=== PATIENT | female | born 1960 | race Caucasian/White ===

== ENCOUNTER 2017-07-05 16:08 | Emergency (ER) | payer BC ==
[2017-07-05] MEDS ORDERED: MAG HYDROX/AL HYDROX/SIMETH SUSP 30 ML UDCUP PO ONE (16:37)
[2017-07-05] MEDS ORDERED: LIDOCAINE 2% VISCOUS SOLN 20 ML UDCUP PO ONE (16:37)
--- NOTE | 2017-07-05 16:41 | ER Document Report ---
ED Medical Screen (RME) - General Chief Complaint: Abdominal Pain Stated Complaint: SIDE/BACK PAIN Time Seen by Provider: 07/05/17 16:34 Notes: This 56-year-old female patient complains of one-week history of epigastric and right upper quadrant abdominal pain goes into the back. She reports her gallbladder removed about 15 years ago. She had similar pain 5 years ago and at that time had a sphincterotomy of the sphincter of Oddi. She does suffer from considerable amount of reflux by history. Brief exam shows the epigastrium to be somewhat tender to palpate. It is less tender in the right upper quadrant. I have greeted and performed a rapid initial assessment of this patient. A comprehensive ED assessment and evaluation of the patient, analysis of test results and completion of the medical decision making process will be conducted by additional ED providers. TRAVEL OUTSIDE OF THE [place] IN LAST 30 DAYS: No - Related Data Allergies/Adverse Reactions: bupropion [From Wellbutrin] Allergy (Verified 07/05/17 16:20) cyclobenzaprine [From Flexeril] Allergy (Verified 07/05/17 16:20) metaxalone [From Skelaxin] Allergy (Verified 07/05/17 16:20) tramadol [From Ultram] Allergy (Verified 07/05/17 16:20) Past Medical History Renal/ Medical History: Denies: Hx Peritoneal Dialysis Physical Exam - Vital signs Vitals: Temp Pulse Resp BP Pulse Ox 98.7 F 106 H 18 146/77 H 96 07/05/17 16:20 07/05/17 16:20 07/05/17 16:20 07/05/17 16:20 07/05/17 16:20 Course - Vital Signs Vital signs: Temp Pulse Resp BP Pulse Ox 98.7 F 106 H 18 146/77 H 96 07/05/17 16:20 07/05/17 16:20 07/05/17 16:20 07/05/17 16:20 07/05/17 16:20
[2017-07-05 17:21] LABS: ABSOLUTE BASOPHILS # (AUTO) 0.1 10^3/uL (0.0-0.2); ABSOLUTE EOSINOPHILS # (AUTO) 0.1 10^3/uL (0.0-0.6); ABSOLUTE MONOCYTES (AUTO) 0.5 10^3/uL (0.1-1.4); ABSOLUTE NEUT (AUTO) 7.6 10^3/uL (1.7-8.2); BASOPHILS % (AUTO) 0.6 % (0-2); EOSINOPHILS % (AUTO) 1.1 % (0-6); HEMATOCRIT 47.8 % (36.0-47.0); HEMOGLOBIN 16.6 g/dL (12.0-15.5); LYMPHOCYTES % (AUTO) 26.8 % (13-45); MEAN CORPUSCULAR HEMOGLOBIN 32.5 pg (27.0-33.4); MEAN CORPUSCULAR HGB CONC 34.6 g/dL (32.0-36.0); MEAN CORPUSCULAR VOLUME 94 fl (80-97); MONOCYTES % (AUTO) 4.8 % (3-13); RED CELL DISTRIBUTION WIDTH 14.7 % (11.5-14.0); SEGMENTED NEUTROPHILS % (AUTO) 66.7 % (42-78); WHITE BLOOD COUNT 11.3 10^3/uL (4.0-10.5)
[2017-07-05 17:38] LABS: ALANINE AMINOTRANSFERASE 24 U/L (9-52); ALBUMIN 4.7 g/dL (3.5-5.0); ALKALINE PHOSPHATASE 83 U/L (38-126); ANION GAP 16 (5-19); ASPARTATE AMINO TRANSFERASE 20 U/L (14-36); BILIRUBIN,DIRECT 0.3 mg/dL (0.0-0.4); BILIRUBIN,TOTAL 0.4 mg/dL (0.2-1.3); BLOOD UREA NITROGEN 15 mg/dL (7-20); CALCIUM 9.9 mg/dL (8.4-10.2); CARBON DIOXIDE 24 mmol/L (22-30); CHLORIDE 106 mmol/L (98-107); CREATININE RESULT 0.68 mg/dL (0.52-1.25); GLUCOSE 105 mg/dL (75-110); LIPASE 43.5 U/L (23-300); POTASSIUM 4.1 mmol/L (3.6-5.0); SODIUM 145.7 mmol/L (137-145); TOTAL PROTEIN 7.6 g/dL (6.3-8.2)
[2017-07-05] MEDS ORDERED: HYDROCODONE/ACETAMINOPHEN 5-325 MG TABLET PO ONE (17:55)
--- NOTE | 2017-07-05 17:56 | ER Document Report ---
ED GI/ - General Chief Complaint: Abdominal Pain Stated Complaint: SIDE/BACK PAIN Time Seen by Provider: 07/05/17 16:34 Notes: The patient is a 56-year-old female, past medical history cholecystectomy, presents with 2 days of worsening right upper quadrant abdominal pain and nausea that is worse after eating. She had this a few years ago when she required a sphincter of Oddi sphincterectomy at [facility]. Patient denies fevers, vomiting, diarrhea, constipation, urinary symptoms, rash or headache. TRAVEL OUTSIDE OF THE [place] IN LAST 30 DAYS: No - Related Data Allergies/Adverse Reactions: bupropion [From Wellbutrin] Allergy (Verified 07/05/17 17:21) cyclobenzaprine [From Flexeril] Allergy (Verified 07/05/17 17:21) metaxalone [From Skelaxin] Allergy (Verified 07/05/17 17:21) tramadol [From Ultram] Allergy (Verified 07/05/17 17:21) Past Medical History - General Information source: Patient - Social History Smoking Status: Current Every Day Smoker Chew tobacco use (# tins/day): No Frequency of alcohol use: None Drug Abuse: None Family History: Reviewed & Not Pertinent Patient has suicidal ideation: No Patient has homicidal ideation: No Renal/ Medical History: Denies: Hx Peritoneal Dialysis Psychiatric Medical History: Reports: Hx Depression Past Surgical History: Reports: Hx Appendectomy, Hx Hysterectomy, Hx Orthopedic Surgery - both [facility] Review of Systems - Review of Systems Notes: REVIEW OF SYSTEMS: CONSTITUTIONAL: -fevers, -chills EENT: -eye pain, -difficulty swallowing, -nasal congestion CARDIOVASCULAR:-chest pain, -syncope. RESPIRATORY: -cough, -SOB GASTROINTESTINAL: +RUQ abdominal pain, +nausea, -vomiting, -diarrhea GENITOURINARY: -dysuria, -hematuria MUSCULOSKELETAL: -back pain, -neck pain SKIN: -rash or skin lesions. HEMATOLOGIC: -easy bruising or bleeding. LYMPHATIC: -swollen, enlarged glands. NEUROLOGICAL: -altered mental status or loss of consciousness, -headache, - neurologic symptoms PSYCHIATRIC: -anxiety, -depression. ALL OTHER SYSTEMS REVIEWED AND NEGATIVE. Physical Exam - Vital signs Vitals: Temp Pulse Resp BP Pulse Ox 98.7 F 106 H 18 146/77 H 96 07/05/17 16:20 07/05/17 16:20 07/05/17 16:20 07/05/17 16:20 07/05/17 16:20 - Notes Notes: PHYSICAL EXAMINATION: GENERAL: Well-appearing, well-nourished and in mild acute distress. HEAD: Atraumatic, normocephalic. EYES: Pupils equal round and reactive to light, extraocular movements intact, sclera anicteric, conjunctiva are normal. ENT: nares patent, oropharynx clear without exudates. Moist mucous membranes. NECK: Normal range of motion, supple without lymphadenopathy LUNGS: Breath sounds clear to auscultation bilaterally and equal. No wheezes rales or rhonchi. HEART: Regular rate and rhythm without murmurs ABDOMEN: Soft, moderate RUQ tenderness, normoactive bowel sounds. No guarding, no rebound. No masses appreciated. EXTREMITIES: Normal range of motion, no pitting or edema. No cyanosis. NEUROLOGICAL: Cranial nerves grossly intact. Normal speech, normal gait. Normal sensory and motor exams. PSYCH: Normal mood, normal affect. SKIN: Warm, Dry, normal turgor, no rashes or lesions noted. Course - Re-evaluation Re-evalutation: Patient with right upper quadrant tenderness and nausea that is worse after eating. Her ultrasound shows cholelithiasis with mild CBD dilation which may be related to postsurgical changes. However, she is tender in her right upper quadrant. 07/05/17 21:[address] Syed about positive Zhao sign and ultrasound results and he will be down to see patient. 07/05/17 21:[address] Syed and with a ultrasound that does not show evidence of cholecystitis and a normal LFTs, do not suspect a choledocholithiasis. Patient is on chronic pain management and on 30 mg of morphine several times a day. Instructed her to follow-up with her GI doctor in [place] when she returns this week. Given strict return precautions and she understands. - Vital Signs Vital signs: Temp Pulse Resp BP Pulse Ox 98.8 F 72 16 110/58 L 95 07/05/17 20:05 07/05/17 20:05 07/05/17 20:05 07/05/17 20:05 07/05/17 20:05 - Laboratory Result Diagrams: 07/05/17 16:50 07/05/17 16:50 Laboratory results interpreted by me: 07/05/17 07/05/17 07/05/17 16:50 16:50 17:44 WBC 11.3 H Hgb 16.6 H Hct 47.8 H RDW 14.7 H Sodium 145.7 H Urine Protein 30 H Ur Leukocyte Esterase TRACE H - Diagnostic Test Radiology reviewed: Image reviewed, Reports reviewed Radiology results interpreted by me: RUTravon US: Cholelithiasis with mild CBD dilation, no ductal stones. Discharge - Discharge Clinical Impression: Right upper quadrant abdominal pain Condition: Stable Disposition: HOME, SELF-CARE Additional Instructions: ABDOMINAL PAIN: There are many causes of abdominal pain. Pain can mean a serious problem requiring surgery (such as appendicitis). It can also be an innocent problem that goes away on its own (such as a viral infection). Often, time must pass to determine the cause of pain. The physician does not feel that hospitalization is necessary, at present. Things may change within the next 24 hours. Call the doctor or come back for re- examination if any problems occur, such as: (1) Pain that becomes more severe, steady, or becomes concentrated in one specific area. Also, pain that is more severe with movement or coughing. (2) Vomiting that persists or becomes more frequent. (3) Blood in the vomitus, urine, or bowel movements. Blood in the stool may have a tarry or black appearance. (4) Shaking chills or fever greater than 100 degrees F. (5) The abdomen becomes more distended or swollen. (6) Bowel movements cease. (7) Failure to improve as expected. NORMAL EXAM AND WORKUP: At this time, your examination and workup show no significant abnormality. No significant abnormal physical findings are noted. All laboratory, EKG, and imaging (x-ray, CT scans, ultrasound) studies that were ordered show no significant abnormality. Although your examination and all studies that were ordered showed no significant abnormal finding, there are no examinations and no studies that are 100% accurate. There is always the possibility that some abnormality could exist and not be detected with physical examination or within the limits and capabilities of laboratory and other studies. You should return or follow up as you were instructed on your visit today for further evaluation if your symptoms do not resolve. FOLLOW-UP CARE: If you have been referred to a physician for follow-up care, call the physician s office for an appointment as you were instructed or within the next two days. If you experience worsening or a significant change in your symptoms, notify the physician immediately or return to the Emergency Department at any time for re-evaluation. Referrals: MIKE ISLAS MD [ACTIVE STAFF] - Follow up as needed
[2017-07-05 18:03] LABS: APPEARANCE,URINE SLIGHTLY-CLOUDY; BILIRUBIN,URINE NEGATIVE (NEGATIVE); GLUCOSE, URINE NEGATIVE (NEGATIVE); KETONES,URINE NEGATIVE (NEGATIVE); LEUKOCYTE ESTERASE,URINE TRACE (NEGATIVE); NITRITE,URINE NEGATIVE (NEGATIVE); PROTEIN,URINE 30 mg/dL (NEGATIVE); URINE SPECIFIC GRAVITY 1.029; UROBILINOGEN,URINE NEGATIVE mg/dL (<2.0)
--- NOTE | 2017-07-05 19:16 | RADIOLOGY REPORT (SQ) ---
EXAM DESCRIPTION: U/S ABDOMEN LIMITED W/O DOP COMPLETED DATE/TIME: 07/05/2017 7:01 pm REASON FOR STUDY: RUQ pain and tenderness, s/p cholecystectomy COMPARISON: None. TECHNIQUE: Dynamic and static grayscale images acquired of the abdomen and recorded on PACS. Cindyo sonia selected color Doppler and spectral images recorded. LIMITATIONS: None. FINDINGS: PANCREAS: No masses. Visualized pancreatic duct normal caliber. LIVER: No masses. Echotexture normal. LIVER VASCULATURE: Normal directional flow of the main portal vein and hepatic veins. GALLBLADDER: Surgically absent. ULTRASOUND-DETECTED MOORE'S SIGN: Not applicable. INTRAHEPATIC DUCTS AND COMMON DUCT: No intrahepatic duct dilatation. Common duct measures up to 12 m m, slightly conspicuous. No duct stones visualized. INFERIOR VENA CAVA: Normal flow. AORTA: No aneurysm. RIGHT KIDNEY: Normal size. Normal echogenicity. No solid or suspicious masses. No hydronephrosis. No calcifications. PERITONEAL AND RIGHT PLEURAL SPACE: No ascites or effusions. OTHER: No other significant findings. IMPRESSION: 1. Cholelithiasis with mild common duct dilatation. This may be related to postoperativ e state. No duct stones identified. Otherwise right upper quadrant ultrasound. TECHNICAL DOCUMENTATION: JOB ID: [id number] [employer]- All Rights Reserved
[2017-07-05] MEDS ORDERED: OXYCODONE-ACETAMINOPHEN 5-325 MG TABLET PO ONE (20:07)
[2017-07-05 22:23] VITALS: BP 114/73
--- NOTE | 2017-07-05 22:38 | PDOC CONSULTATION ---
Consultation Consult Date: 07/05/17 Consult reason:: Post cholecystectomy and post ERCP with sphincterotomy and now with right upper quadrant pains History of Present Illness History of Present Illness: ELEAZAR NANCE is a 56 year old female Has been complaining of right upper quadrant pains for the past 2 days associated with nausea. She had a lap laparoscopic cholecystectomy about 15-20 years ago in [place] for biliary dyskinesia. About 5 years ago complained of another episode of right upper quadrant pains and subsequently had an ERCP with sphincterotomy. She improved after that. For the past 2 days has been having severe pains getting worse today primarily along the right upper quadrant. She had an ultrasound of the gallbladder gallbladder area today which showed postcholecystectomy with slightly dilated common bile duct but no obvious common bile duct stones. There is an associated nausea. Patient is under pain management and takes morphine 30 mg p.o. daily and she said the last time she took it was about 3 days ago. She has appointment with [facility] pain management on July 21, 2017 . Past Medical History Past Medical History: Denies any hypertension or diabetes Medical History: None Psychiatric Medical History: Reports: Depression Past Surgical History Past Surgical History: Reports: Appendectomy, Hysterectomy, Orthopedic Surgery - both [facility] Social History Smoking Status: Current Every Day Smoker Cigarettes Packs Per Day: 1 - Advance Directive Resuscitation Status: Full Code Family History Family History: Reviewed & Not Pertinent Parental Family History Reviewed: Yes - Mother of breast CA with brain metastases. Father of an [place] Children Family History Reviewed: No Sibling(s) Family History Reviewed.: No Medication/Allergy Allergies/Adverse Reactions: bupropion [From Wellbutrin] Allergy (Verified 07/05/17 17:21) cyclobenzaprine [From Flexeril] Allergy (Verified 07/05/17 17:21) metaxalone [From Skelaxin] Allergy (Verified 07/05/17 17:21) tramadol [From Ultram] Allergy (Verified 07/05/17 17:21) Review of Systems Constitutional: PRESENT: other - Denies any fever nor chills Eyes: PRESENT: other - No visual or hearing problems Nose, Mouth, and Throat: PRESENT: other - No sore throat Cardiovascular: PRESENT: other - No chest pains Respiratory: PRESENT: other - No shortness of breath nor cough Gastrointestinal: PRESENT: as per HPI Musculoskeletal: PRESENT: other - No joint swelling Integumentary: PRESENT: other - No rash Neurological: PRESENT: other - No seizure disorder Endocrine: PRESENT: other - No polydipsia no polyuria Hematologic/Lymphatic: PRESENT: other - Easy bruisability or lymphadenopathy Physical Exam Vital Signs: Temp Pulse Resp BP Pulse Ox 98.8 F 83 16 114/73 95 07/05/17 20:05 07/05/17 22:22 07/05/17 22:22 07/05/17 22:22 07/05/17 22:22 Intake & Output 07/04/17 07/05/17 07/06/17 06:59 06:59 06:59 Weight 67.4 kg General appearance: PRESENT: no acute distress Head exam: PRESENT: atraumatic, normocephalic Eye exam: PRESENT: conjunctiva pink Mouth exam: PRESENT: moist, tongue midline Neck exam: PRESENT: full ROM Respiratory exam: PRESENT: clear to auscultation brie Cardiovascular exam: PRESENT: RRR Pulses: PRESENT: normal radial pulses Vascular exam: PRESENT: normal capillary refill GI/Abdominal exam: PRESENT: soft, tenderness - Tenderness just below the rib cage and right upper quadrant Rectal exam: PRESENT: deferred Extremities exam: PRESENT: full ROM Musculoskeletal exam: PRESENT: full ROM Neurological exam: PRESENT: alert, oriented to person, oriented to place, oriented to time, oriented to situation Psychiatric exam: PRESENT: appropriate affect Skin exam: PRESENT: dry, normal color, warm Results Laboratory Results: 07/05/17 16:50 07/05/17 16:50 07/05/17 07/05/17 07/05/17 16:50 16:50 17:44 WBC 11.3 H RBC 5.10 Hgb 16.6 H Hct 47.8 H MCV 94 MCH 32.5 MCHC 34.6 RDW 14.7 H Plt Count 163 Seg Neutrophils % 66.7 Lymphocytes % 26.8 Monocytes % 4.8 Eosinophils % 1.1 Basophils % 0.6 Absolute Neutrophils 7.6 Absolute Lymphocytes 3.0 Absolute Monocytes 0.5 Absolute Eosinophils 0.1 Absolute Basophils 0.1 Sodium 145.7 H Potassium 4.1 Chloride 106 Carbon Dioxide 24 Anion Gap 16 BUN 15 Creatinine 0.68 Est GFR ( Amer) > 60 Est GFR (Non-Af Amer) > 60 Glucose 105 Calcium 9.9 Total Bilirubin 0.4 AST 20 ALT 24 Alkaline Phosphatase 83 Total Protein 7.6 Albumin 4.7 Lipase 43.5 Urine Color YELLOW Urine Appearance SLIGHTLY-CLOUDY Urine pH 5.0 Ur Specific [place] 1.029 Urine Protein 30 H Urine Glucose (UA) NEGATIVE Urine Ketones NEGATIVE Urine Blood NEGATIVE Urine Nitrite NEGATIVE Ur Leukocyte Esterase TRACE H Urine WBC (Auto) 10 Urine RBC (Auto) 2 Impressions: Abdomen Ultrasound 07/05/17 17:56 IMPRESSION: 1. Cholelithiasis with mild common duct dilatation. This may be related to postoperative state. No duct stones identified. Otherwise right upper quadrant ultrasound. Assessment & Plan - Time Time Spent: 30 to 50 Minutes - Plan Summary Plan Summary: #1 no anatomical findings to cause patient's symptomatology. She is post cholecystectomy and an ERCP with sphincterotomy. No obvious common bile duct stone and ultrasound. 2. Patient apparently going back to [place] and she could be followed up there by her doctors. 3. Continue with the her pain management
== END 2017-07-05 22:05 | disposition home or self-care (01) ==
LOC: ER 16:08
DX: K80.80 Other cholelithiasis without obstruction (principal); R10.11 Right upper quadrant pain; F17.200 Nicotine dependence, unspecified, uncomplicated; R11.0 Nausea; Z79.891 Long term (current) use of opiate analgesic; Z90.49 Acquired absence of other specified parts of digestive tract; Z88.8 Allergy status to other drugs, medicaments and biological substances; Z88.5 Allergy status to narcotic agent
CPT/HCPCS: 99284; 36415; 83690; 85025; 80053; 81001; 76705; J3490

== ENCOUNTER 2017-07-10 08:43 | Emergency (ER) | payer BC ==
[2017-07-10] MEDS ORDERED: NORMAL SALINE 1000 ML 1,000 ML IV ONE (09:20)
--- NOTE | 2017-07-10 09:21 | ER Document Report ---
ED GI/ - General Chief Complaint: Abdominal Pain >50 Stated Complaint: ABDOMINAL PAIN BACK PAIN NAUSEA Time Seen by Provider: 07/10/17 09:19 Mode of Arrival: Ambulatory Information source: Patient Notes: 56-year-old female complaining of epigastric and right upper quadrant abdominal pain for 2 weeks. She was seen in the emergency department Thursday and had a consult with the general surgeon Dr. Syed. Cholecystectomy was done 10 years ago ERCP with sphincterotomy 4-5 years ago. No nausea vomiting or diarrhea. No cough. No chest pain. No dysuria frequency or urgency. No fever or chills. TRAVEL OUTSIDE OF THE [place] IN LAST 30 DAYS: No - Related Data Allergies/Adverse Reactions: bupropion [From Wellbutrin] Allergy (Verified 07/05/17 17:21) cyclobenzaprine [From Flexeril] Allergy (Verified 07/05/17 17:21) metaxalone [From Skelaxin] Allergy (Verified 07/05/17 17:21) tramadol [From Ultram] Allergy (Verified 07/05/17 17:21) Past Medical History - General Information source: Patient - Social History Smoking Status: Current Every Day Smoker Frequency of alcohol use: None Drug Abuse: None Lives with: Alone Family History: Reviewed & Not Pertinent - Medical History Medical History: Negative Renal/ Medical History: Denies: Hx Peritoneal Dialysis Psychiatric Medical History: Reports: Hx Depression Past Surgical History: Reports: Hx Appendectomy, Hx Hysterectomy, Hx Orthopedic Surgery - both [facility] Review of Systems - Review of Systems Constitutional: No symptoms reported EENT: No symptoms reported Cardiovascular: No symptoms reported Respiratory: No symptoms reported Gastrointestinal: See HPI Genitourinary: No symptoms reported Female Genitourinary: No symptoms reported Musculoskeletal: No symptoms reported Skin: No symptoms reported Hematologic/Lymphatic: No symptoms reported Neurological/Psychological: No symptoms reported Physical Exam - Vital signs Vitals: Temp Pulse Resp BP Pulse Ox 98.0 F 124 H 16 136/79 H 97 07/10/17 08:48 07/10/17 08:48 07/10/17 08:48 07/10/17 08:48 07/10/17 08:48 Interpretation: Normal - General General appearance: Appears well, Alert In distress: None - HEENT Head: Normocephalic, Atraumatic Eyes: Normal Conjunctiva: Normal Pupils: PERRL Mucous membranes: Normal Pharynx: Normal Neck: Supple. No: Lymphadenopathy - Respiratory Respiratory status: No respiratory distress Chest status: Nontender Breath sounds: Normal Chest palpation: Normal - Cardiovascular Rhythm: Regular Heart sounds: Normal auscultation Murmur: No - Abdominal Inspection: Normal Distension: No distension Bowel sounds: Normal Tenderness: Tender - epigatrum, RUQ Organomegaly: No organomegaly - Back Back: Normal, Nontender. No: CVA tenderness - Extremities General upper extremity: Normal inspection, Nontender, Normal color, Normal ROM , Normal temperature General lower extremity: Normal inspection, Nontender, Normal color, Normal ROM , Normal temperature, Normal weight bearing. No: Du's sign - Neurological Neuro grossly intact: Yes Cognition: Normal Orientation: AAOx4 [place] Coma Scale Eye Opening: Spontaneous [place] Coma Scale Verbal: Oriented Ty Coma Scale Motor: Obeys Commands [place] Coma Scale Total: 15 Speech: Normal Motor strength normal: LUE, RUE, LLE, RLE Sensory: Normal - Psychological Associated symptoms: Normal affect, Normal mood - Skin Skin Temperature: Warm Skin Moisture: Dry Skin Color: Normal Skin irregularity: negative: Rash Course - Re-evaluation Re-evalutation: 07/10/17 10:[address] Bangura for imaging he recommends ultrasound, he saw her on Thursday. 07/10/17 11:42 Ultrasound read by radiologist who recommends an MRCP. Which I have ordered. 07/10/17 14:59 MRCP is negative will send home with Protonix and GI referral and recommended that she take Tylenol for discomfort. Copy of lab were given to the patient - Vital Signs Vital signs: Temp Pulse Resp BP Pulse Ox 98.9 F 81 18 135/82 H 97 07/10/17 15:30 07/10/17 15:30 07/10/17 15:30 07/10/17 15:30 07/10/17 15:30 - Laboratory Result Diagrams: 07/10/17 09:52 07/10/17 09:52 Laboratory results interpreted by me: 07/10/17 07/10/17 09:52 10:58 Hgb 16.4 H Hct 48.0 H RDW 14.3 H Plt Count 142 L Urine Ketones TRACE H Discharge - Discharge Clinical Impression: Abdominal pain, chronic, right upper quadrant Condition: Good Disposition: HOME, SELF-CARE Instructions: Abdominal Pain ([facility]), Acetaminophen, Prilosec (Acid Pump Inhibitor) ([facility]) Additional Instructions: Return to the emergency room if worse Copy of lab work and imaging given to you See the oil pipeline operator on the as planned Warm compress Tylenol Start the Protonix to reduce the acid Please complete the patient satisfaction survey if you get one, and return it.. If you do not receive a survey, then you can go to the [facility] website, [email or web address] and place your comments about your very good care. Thank you very much. It was a pleasure being your medical provider today. Prescriptions: Pantoprazole Sodium [Protonix] 40 mg PO DAILY #30 tablet.dr Referrals: MIKE ISLAS MD [ACTIVE STAFF] - Follow up as needed
[2017-07-10] MEDS ORDERED: LIDOCAINE 2% VISCOUS SOLN 20 ML UDCUP PO ONE (10:04)
[2017-07-10] MEDS ORDERED: MAG HYDROX/AL HYDROX/SIMETH SUSP 30 ML UDCUP PO ONE (10:04)
[2017-07-10] MEDS ORDERED: LANSOPRAZOLE 30 MG TAB.RAP.DR PO ONE (10:05)
[2017-07-10 10:11] LABS: ABSOLUTE BASOPHILS # (AUTO) 0.1 10^3/uL (0.0-0.2); ABSOLUTE EOSINOPHILS # (AUTO) 0.1 10^3/uL (0.0-0.6); ABSOLUTE LYMPHOCYTES (AUTO) 1.3 10^3/uL (0.5-4.7); ABSOLUTE MONOCYTES (AUTO) 0.4 10^3/uL (0.1-1.4); ABSOLUTE NEUT (AUTO) 6.7 10^3/uL (1.7-8.2); BASOPHILS % (AUTO) 0.8 % (0-2); EOSINOPHILS % (AUTO) 0.9 % (0-6); HEMOGLOBIN 16.4 g/dL (12.0-15.5); HGB HCT DIFFERENCE 1.2; LYMPHOCYTES % (AUTO) 15.6 % (13-45); MEAN CORPUSCULAR HEMOGLOBIN 31.9 pg (27.0-33.4); MEAN CORPUSCULAR HGB CONC 34.2 g/dL (32.0-36.0); MEAN CORPUSCULAR VOLUME 93 fl (80-97); MONOCYTES % (AUTO) 4.9 % (3-13); RED BLOOD COUNT 5.15 10^6/uL (3.72-5.28); RED CELL DISTRIBUTION WIDTH 14.3 % (11.5-14.0); SEGMENTED NEUTROPHILS % (AUTO) 77.8 % (42-78); WHITE BLOOD COUNT 8.7 10^3/uL (4.0-10.5)
[2017-07-10 10:44] LABS: ALANINE AMINOTRANSFERASE 23 U/L (9-52); ALBUMIN 4.4 g/dL (3.5-5.0); ALKALINE PHOSPHATASE 79 U/L (38-126); ANION GAP 14 (5-19); ASPARTATE AMINO TRANSFERASE 20 U/L (14-36); BILIRUBIN,DIRECT 0.3 mg/dL (0.0-0.4); BILIRUBIN,TOTAL 0.3 mg/dL (0.2-1.3); BLOOD UREA NITROGEN 20 mg/dL (7-20); CALCIUM 9.8 mg/dL (8.4-10.2); CARBON DIOXIDE 24 mmol/L (22-30); CHLORIDE 105 mmol/L (98-107); CREATININE RESULT 0.78 mg/dL (0.52-1.25); GLUCOSE 97 mg/dL (75-110); POTASSIUM 4.3 mmol/L (3.6-5.0); SODIUM 142.9 mmol/L (137-145)
[2017-07-10 11:17] LABS: APPEARANCE,URINE CLEAR; BILIRUBIN,URINE NEGATIVE (NEGATIVE); GLUCOSE, URINE NEGATIVE (NEGATIVE); KETONES,URINE TRACE mg/dL (NEGATIVE); LEUKOCYTE ESTERASE,URINE NEGATIVE (NEGATIVE); NITRITE,URINE NEGATIVE (NEGATIVE); PROTEIN,URINE NEGATIVE (NEGATIVE); URINE SPECIFIC GRAVITY 1.018; UROBILINOGEN,URINE NEGATIVE mg/dL (<2.0)
--- NOTE | 2017-07-10 11:28 | RADIOLOGY REPORT (SQ) ---
EXAM DESCRIPTION: U/S ABDOMEN LIMITED W/O DOP COMPLETED DATE/TIME: 07/10/2017 11:18 am REASON FOR STUDY: epigastric, ruq pain COMPARISON: 07/05/2017 TECHNIQUE: Dynamic and static grayscale images acquired of the abdomen and recorded on PACS. Cindyo sonia selected color Doppler and spectral images recorded. LIMITATIONS: None. FINDINGS: PANCREAS: Midline pancreas unremarkable. No pancreatic ductal dilatation LIVER: No masses. Echotexture normal. LIVER VASCULATURE: Normal directional flow of the main portal vein and hepatic veins. GALLBLADDER: Surgically absent ULTRASOUND-DETECTED MOORE'S SIGN: Not applicable INTRAHEPATIC DUCTS AND COMMON DUCT: No intrahepatic biliary ductal dilatation. Common bile duct at t he mariel hepatis and pancreatic head is 12 mm in diameter. This is upper limits of normal given that the patient is post cholecystectomy. This is stable compared to 07/05/2017. Consider MRCP to exclu de a distal ductal stone or stricture INFERIOR VENA CAVA: Normal flow. AORTA: No aneurysm. RIGHT KIDNEY: Normal size. Normal echogenicity. No solid or suspicious masses. No hydronephrosis. No calcifications. PERITONEAL AND RIGHT PLEURAL SPACE: No ascites or effusions. OTHER: No other significant findings. IMPRESSION: Post cholecystectomy No intrahepatic biliary ductal dilatation. Common bile duct at the mariel hepatis and pancreatic head is 12 mm in diameter. Consider MRCP to chetna luate for distal ductal stone or stricture TECHNICAL DOCUMENTATION: JOB ID: [id number]- All Rights Reserved
[2017-07-10] MEDS ORDERED: KETOROLAC TROMETHAMINE INJ/PF 30 MG/1 ML SDV IV ONE (11:34)
--- NOTE | 2017-07-10 12:56 | RADIOLOGY REPORT (SQ) ---
EXAM DESCRIPTION: MRI ABDOMEN WITHOUT COMPLETED DATE/TIME: 07/10/2017 12:46 pm REASON FOR STUDY: MRCP, epigstic and RUQ pain COMPARISON: Abdominal ultrasound 07/10/2017, 07/05/2017 TECHNIQUE: Noncontrast MRCP. Source and MIP images reviewed. LIMITATIONS: None. FINDINGS: GALLBLADDER: Surgically absent INTRAHEPATIC DUCTS: Mild prominence of the right and left hepatic ducts, and common hepatic duct. EXTRAHEPATIC DUCTS: Common bile duct measures 12 to 13 mm in greatest diameter. No distal ductal sto gerardo or strictures. PANCREAS: Generally homogeneous, no gross mass or significant signal alteration. No surrounding infl ammatory changes or fluid. Pancreatic duct is mildly prominent, 3 to 4 mm in diameter. . LIVER, SPLEEN, KIDNEYS, ADRENALS: No significant abnormality. VESSELS: No evidence of aneurysm. Grossly appropriate flow voids in the major vascular structures. LUNG BASES: Grossly clear. OTHER: No other significant finding. IMPRESSION: Mildly prominent right and left hepatic, common hepatic, and common bile ducts without e vidence of choledocholithiasis Mild prominence of the pancreatic duct without evidence of pancreatic ductal stones or acute pancreat itis TECHNICAL DOCUMENTATION: JOB ID: [id number] [employer]- All Rights Reserved
[2017-07-10 16:06] VITALS: BP 135/82
== END 2017-07-10 15:30 | disposition home or self-care (01) ==
LOC: ER 08:43
DX: R10.11 Right upper quadrant pain (principal); G89.29 Other chronic pain; R10.13 Epigastric pain; F17.200 Nicotine dependence, unspecified, uncomplicated
CPT/HCPCS: 99284; 96361; 96374; 36415; 87086; 83690; 85025; 80053; 81001; 74181; 76705; J3490; J1885; J7030